=== PATIENT | male | born 1965 | race Caucasian/White ===

== ENCOUNTER 2022-04-05 19:11 | Inpatient (IN) | payer SELFPAY ==
[~2022-04-05] VITALS: Ht 172.7 cm; Wt 79.8 kg
[2022-04-05] MEDS ORDERED: DIPHENHYDRAMINE 50MG/ML VIAL IV ONE (22:45)
[2022-04-05] MEDS ORDERED: CEFTRIAXONE 2 G PREMIX 50 ML IV ONE (22:45)
[2022-04-05] MEDS ORDERED: CEFTRIAXONE 2 G in DEXTROSE 5% WATER 50 ML IV NR (23:00)
[2022-04-05 23:14] LABS: CHLORIDE 105 mEq/L (98-107)
[2022-04-05 23:26] LABS: BASOPHILS % 0.8 % (0.0-2.0); EOSINOPHILS % 8.8 % (0.0-5.0); HEMATOCRIT. 37.4 % (42.0-52.0); LYMPHOCYTES % 17.6 % (20.0-50.0); MEAN CORPUSCULAR HEMOGLOBIN 34.2 pg (28.0-32.0); MEAN CORPUSCULAR VOLUME 98.8 fL (80.0-94.0); MEAN PLATELET VOLUME 7.3 fl (7.4-10.4); MONOCYTES % 8.8 % (2.0-8.0); PLATELET 262 x1000/uL (130-400); RED BLOOD CELL COUNT 3.79 mill/uL (4.7-6.1); RED CELL DISTRIBUTION WIDTH 13.7 % (11.6-14.6)
[2022-04-06 06:00] VITALS: BP 138/87
[2022-04-06 08:00] VITALS: BP_SYST 136; BP_SYST 156; BP_DIAS 52
[2022-04-06 12:00] VITALS: BP 150/77
[2022-04-06] MEDS ORDERED: PERMETHRIN 5% CREAM 60GM TOP NR (15:00)
[2022-04-06 16:00] VITALS: BP 144/90
[2022-04-06 20:00] VITALS: BP 143/82
[2022-04-06] MEDS ORDERED: CEFTRIAXONE 1,000 MG in DEXTROSE 5% WATER 50 ML IV SCH (21:00)
[2022-04-06] MEDS ORDERED: HYDROCODONE/ACETAMINOPHEN 5/325MG TABLET PO PRN (22:00)
[2022-04-06] MEDS ORDERED: NALOXONE HCL 0.4MG/ML VIAL IV PRN (22:00)
[2022-04-06] MEDS ORDERED: ACETAMINOPHEN 650MG/20.3ML UDC PO PRN (22:00)
[2022-04-07] VITALS: BP 120/84
[2022-04-07 04:00] VITALS: BP 137/68
[2022-04-07 08:00] VITALS: BP 129/87
[2022-04-07] MEDS ORDERED: CEPH500C2 MT (09:20)
[2022-04-07 09:52] VITALS: BP 129/87
[2022-04-09 04:07] LABS: HIV SCREEN 4G Non Reactive (Non Reactive)
== END 2022-04-07 10:54 | disposition home or self-care (01) | DRG 383 ==
LOC: ER 19:30 → 6EST 04-06 01:41 → EDBEDREQ 04-06 02:01 → EDBEDREQTM 04-06 02:01 → ENRESERV 04-06 02:39
PROVIDERS: ADMIT Internal Medicine; ATTEND Internal Medicine
DX: L03.90 Cellulitis, unspecified (principal); D64.9 Anemia, unspecified; B86 Scabies; Z20.822 Contact with and (suspected) exposure to COVID-19; S80.822A Blister (nonthermal), left lower leg, initial encounter; S80.821A Blister (nonthermal), right lower leg, initial encounter; T14.8XXA Other injury of unspecified body region, initial encounter; X58.XXXA Exposure to other specified factors, initial encounter; Y93.89 Activity, other specified; Y92.89 Other specified places as the place of occurrence of the external cause; Y99.8 Other external cause status
CPT/HCPCS: 36415; 80053; 83605; 85025; 85651; 87389; 87426; 99285; C9803; J0696; J1200; J7060; A4315

== ENCOUNTER 2022-04-29 13:35 | Emergency (ER) | payer SELFPAY ==
[~2022-04-29] VITALS: Ht 177.8 cm; Wt 73.0 kg
[~2022-04-29 13:35] MED LIST: CEPH500C2 MT
[2022-04-29 13:38] VITALS: BP 149/79
[2022-04-29] MEDS ORDERED: SULFAMETHOXAZOLE/TRIMETHOPRIM 800/160MG TABLET PO ONE (17:15)
[2022-04-29] MEDS ORDERED: CEPHALEXIN 250MG CAPSULE PO ONE (17:15)
[2022-04-29] MEDS ORDERED: CEPH500C2 MT (17:30)
[2022-04-29] MEDS ORDERED: SULF1TAB48 MT (17:30)
== END 2022-04-29 17:57 | disposition home or self-care (01) ==
LOC: ER 13:35
DX: L03.116 Cellulitis of left lower limb (principal)
CPT/HCPCS: 73590; 99283

== ENCOUNTER 2022-05-11 20:00 | Emergency (ER) | payer SELFPAY ==
[~2022-05-11] VITALS: Ht 177.8 cm; Wt 84.0 kg
[~2022-05-11 20:00] MED LIST changes: +SULF1TAB48 MT
[2022-05-11 20:04] VITALS: BP 125/76
[2022-05-12] MEDS ORDERED: SULF1TAB48 MT (16:40)
== END 2022-05-11 21:37 | disposition home or self-care (01) ==
LOC: ER 20:00
DX: Z00.00 Encounter for general adult medical examination without abnormal findings (principal); G89.29 Other chronic pain
CPT/HCPCS: 99283

== ENCOUNTER 2022-05-12 14:45 | Emergency (ER) | payer MEDICAID ==
[~2022-05-12] VITALS: Ht 182.9 cm; Wt 81.0 kg
[2022-05-12 14:57] VITALS: BP 148/78
[2022-05-12] MEDS ORDERED: IBUPROFEN 400MG TABLET PO ONE (16:00)
[2022-05-12] MEDS ORDERED: ACETAMINOPHEN 325MG TABLET PO ONE (16:00)
[2022-05-12] MEDS ORDERED: SULF1TAB48 MT (16:40)
== END 2022-05-12 18:24 | disposition home or self-care (01) ==
LOC: ER 14:45
DX: G89.29 Other chronic pain (principal); M25.572 Pain in left ankle and joints of left foot
CPT/HCPCS: 99283

== ENCOUNTER 2022-06-15 20:01 | Inpatient (IN) | payer MEDICAID ==
[~2022-06-15] VITALS: Ht 182.9 cm; Wt 83.0 kg
[2022-06-15] MEDS ORDERED: SODIUM CHLORIDE 0.9% 1,000 ML IV ONE (20:45)
[2022-06-15] MEDS ORDERED: SULFAMETHOXAZOLE/TRIMETHOPRIM 800/160MG TABLET PO ONE (20:45)
[2022-06-15] MEDS ORDERED: CEPHALEXIN 250MG CAPSULE PO ONE (20:45)
[2022-06-15 22:02] LABS: BASOPHILS % 1.5 % (0.0-2.0); EOSINOPHILS % 4.2 % (0.0-5.0); HEMOGLOBIN. 14.9 g/dL (14.0-18.0); LYMPHOCYTES % 22.3 % (20.0-50.0); MEAN CORPUSCULAR HEMOGLOBIN 34.1 pg (28.0-32.0); MEAN CORPUSCULAR VOLUME 100.8 fL (80.0-94.0); MEAN PLATELET VOLUME 8.2 fl (7.4-10.4); MONOCYTES % 8.1 % (2.0-8.0); NEUTROPHILS % 63.9 % (40.0-76.0); PLATELET 159 x1000/uL (130-400); RED BLOOD CELL COUNT 4.36 mill/uL (4.7-6.1); RED CELL DISTRIBUTION WIDTH 15.2 % (11.6-14.6)
[2022-06-15 22:08] LABS: CHLORIDE 107 mEq/L (98-107)
[2022-06-15 22:22] LABS: ETHANOL BLOOD 330 mg/dL
[2022-06-15] MEDS ORDERED: SULFAMETHOXAZOLE/TRIMETHOPRIM 800/160MG TABLET PO NR (22:30)
[2022-06-15] MEDS ORDERED: CEPHALEXIN 250MG CAPSULE PO NR (22:30)
[2022-06-16] MEDS ORDERED: ZOLPIDEM TARTRATE 5MG TABLET PO PRN (01:00)
[2022-06-16] MEDS ORDERED: ONDANSETRON HCL 4MG/2ML INJ IV PRN (01:00)
[2022-06-16] MEDS ORDERED: GUAIFENESIN 200MG/10ML SUGAR FREE UDC PO PRN (01:00)
[2022-06-16] MEDS ORDERED: IPRATROPIUM/ALBUTEROL 0.5-3(2.5)MG/3ML NEB HHN PRN (01:00)
[2022-06-16] MEDS ORDERED: ACETAMINOPHEN 325MG TABLET PO PRN ×2 (01:00)
[2022-06-16] MEDS ORDERED: LORAZEPAM 0.5MG TABLET PO PRN (01:00)
[2022-06-16] MEDS ORDERED: DIPHENHYDRAMINE 50MG/ML VIAL IV PRN (01:00)
[2022-06-16] MEDS ORDERED: CLONIDINE 0.1MG TABLET PO PRN (01:00)
[2022-06-16] MEDS ORDERED: DOCUSATE SODIUM 100MG CAPSULE PO PRN (01:00)
[2022-06-16] MEDS ORDERED: ASPIRIN 325MG EC TABLET PO ONE (01:15)
[2022-06-16] MEDS ORDERED: VANCOMYCIN 1.25GM PMX (XELLIA) 250 ML IV NR (02:00)
[2022-06-16 02:10] LABS: T4 FREE 0.81 ng/dL (0.76-1.46)
[2022-06-16 02:15] LABS: FOLIC ACID (FOLATE) SERUM 6.7 ng/mL (>5.38)
[2022-06-16] MEDS ORDERED: MVI, ADULT NO.1 10 ML, FOLIC ACID 1 MG, THIAMINE HCL 100 MG in SODIUM CHLORIDE 0.9% 1,0... IV SCH ×8 (02:30→03:15)
[2022-06-16] MEDS ORDERED: PIPERACILLIN/TAZ 3.375G PREMIX 50 ML IV NR (03:00)
[2022-06-16 04:23] LABS: HEMATOCRIT 41.8 % (42.0-52.0); HEMOGLOBIN 13.9 g/dL (14.0-18.0); MEAN CORPUSCULAR HEMOGLOBIN 33.7 pg (28.0-32.0); MEAN CORPUSCULAR VOLUME 101.3 fL (80.0-94.0); PLATELET 138 x1000/uL (130-400); RED BLOOD CELL COUNT 4.12 mill/uL (4.7-6.1); RED CELL DISTRIBUTION WIDTH 15.1 % (11.6-14.6)
[2022-06-16 04:46] LABS: CHLORIDE 110 mEq/L (98-107)
[2022-06-16 04:52] LABS: PHOSPHORUS 3.6 mg/dL (2.5-4.9)
[2022-06-16 04:55] LABS: CREATINE KINASE MB FRACTION 2.9 ng/mL (0.5-3.6)
[2022-06-16] MEDS: ZINC SULFATE 220 MG ( 50 ) CAPSULE PO SCH (09:13)
[2022-06-16] MEDS: ASCORBIC ACID 500 MG TABLET PO SCH (09:13)
[2022-06-16] MEDS: ENOXAPARIN 40MG/0.4ML SYR SUBCUT SCH (09:56)
[2022-06-16] MEDS ORDERED: SODIUM CHLORIDE 45ML SPRAY NS PRN (12:00)
[2022-06-16] MEDS ORDERED: PIPERACILLIN/TAZOBACTAM 3.375G in DEXT 5% WATER 50ML IV SCH (14:00)
[2022-06-16 17:17] LABS: PHOSPHORUS 3.1 mg/dL (2.5-4.9)
[2022-06-16] MEDS: SODIUM CHLORIDE 0.9% 1,000 ML IV SCH (17:41)
[2022-06-16] MEDS: CHLORDIAZEPOXIDE 25MG CAPSULE PO SCH (18:00)
[2022-06-16] MEDS: VANCOMYCIN 1.25GM PMX (XELLIA) 250 ML IV SCH (18:46)
[2022-06-16 19:45] VITALS: BP 146/93
[2022-06-16 20:00] VITALS: BP 146/93
[2022-06-16] MEDS: PIPERACILLIN/TAZOBACTAM 3.375G in DEXT 5% WATER 50ML IV SCH (22:48)
[2022-06-17] VITALS: BP 125/74
[2022-06-17] MEDS: CHLORDIAZEPOXIDE 25MG CAPSULE PO SCH ×4 (00:14→18:25)
[2022-06-17] MEDS: SODIUM CHLORIDE 0.9% 1,000 ML IV SCH ×3 (03:13→23:50)
[2022-06-17 04:00] VITALS: BP 154/95
[2022-06-17] MEDS: VANCOMYCIN 1.25GM PMX (XELLIA) 250 ML IV SCH ×2 (05:13→18:22)
[2022-06-17] MEDS: PIPERACILLIN/TAZOBACTAM 3.375G in DEXT 5% WATER 50ML IV SCH ×3 (07:02→21:56)
[2022-06-17 07:39] LABS: BASOPHILS % 1.5 % (0.0-2.0); EOSINOPHILS % 4.4 % (0.0-5.0); HEMATOCRIT. 40.8 % (42.0-52.0); HEMOGLOBIN. 13.9 g/dL (14.0-18.0); LYMPHOCYTES % 19.8 % (20.0-50.0); MEAN CORPUSCULAR HEMOGLOBIN 34.1 pg (28.0-32.0); MEAN CORPUSCULAR VOLUME 99.9 fL (80.0-94.0); MEAN PLATELET VOLUME 9.3 fl (7.4-10.4); MONOCYTES % 11.2 % (2.0-8.0); NEUTROPHILS % 63.1 % (40.0-76.0); PLATELET 112 x1000/uL (130-400); RED BLOOD CELL COUNT 4.08 mill/uL (4.7-6.1); RED CELL DISTRIBUTION WIDTH 14.5 % (11.6-14.6)
[2022-06-17] MEDS: ZINC SULFATE 220 MG ( 50 ) CAPSULE PO SCH (07:44)
[2022-06-17] MEDS: ASCORBIC ACID 500 MG TABLET PO SCH (07:44)
[2022-06-17] MEDS: ENOXAPARIN 40MG/0.4ML SYR SUBCUT SCH (07:44)
[2022-06-17 08:00] VITALS: BP 150/99
[2022-06-17] MEDS: FOLIC ACID 1MG TABLET PO SCH (08:09)
[2022-06-17] MEDS: THIAMINE HCL 100MG TABLET PO SCH (08:09)
[2022-06-17 08:49] LABS: CHLORIDE 106 mEq/L (98-107)
[2022-06-17 08:58] LABS: PHOSPHORUS 3.2 mg/dL (2.5-4.9)
[2022-06-17 10:21] LABS: CLARITY URINE CLEAR (CLEAR); COLOR URINE DARK YELLOW (YELLOW); KETONES URINE NEGATIVE (NEGATIVE); LEUKOCYTE ESTERASE URINE NEGATIVE (NEGATIVE); NITRITE URINE NEGATIVE (NEGATIVE); OCCULT BLOOD URINE NEGATIVE (NEGATIVE); PH URINE 8.5 (4.5-8.0); PROTEIN URINE NEGATIVE (NEGATIVE)
[2022-06-17 10:39] LABS: *AMPHETAMINES SCREEN URINE NEGATIVE (NEGATIVE); *BARBITURATES SCREEN URINE NEGATIVE (NEGATIVE); *BENZODIAZEPINES SCREEN URINE NEGATIVE (NEGATIVE); *COCAINE SCREEN URINE NEGATIVE (NEGATIVE); CANNABINOID URINE SCREEN NEGATIVE (NEGATIVE); METHADONE URINE SCREEN NEGATIVE (NEGATIVE); OPIATES URINE SCREEN NEGATIVE (NEGATIVE); PHENCYCLIDINE URINE SCREEN NEGATIVE (NEGATIVE)
[2022-06-17 12:00] VITALS: BP 156/87
[2022-06-17] MEDS: ASPIRIN 81MG TABLET PO SCH (12:46)
[2022-06-17] MEDS: CYANOCOBALAMIN 1000MCG/ML VIAL IM SCH (12:47)
[2022-06-17 20:00] VITALS: BP 159/93
[2022-06-17] MEDS ORDERED: ATORVASTATIN CALCIUM 10MG TABLET PO SCH (21:00)
[2022-06-17] MEDS: FAMOTIDINE 20MG TABLET PO SCH (21:56)
[2022-06-18] VITALS: BP 156/86
[2022-06-18] MEDS: CHLORDIAZEPOXIDE 25MG CAPSULE PO SCH ×2 (02:48→09:38)
[2022-06-18 04:00] VITALS: BP 150/94
[2022-06-18] MEDS ORDERED: VANCOMYCIN 1.25GM PMX (XELLIA) 250 ML IV SCH (06:00)
[2022-06-18] MEDS: PIPERACILLIN/TAZOBACTAM 3.375G in DEXT 5% WATER 50ML IV SCH (06:15)
[2022-06-18 06:34] LABS: BASOPHILS % 1.3 % (0.0-2.0); EOSINOPHILS % 7.2 % (0.0-5.0); HEMATOCRIT. 39.8 % (42.0-52.0); HEMOGLOBIN. 13.4 g/dL (14.0-18.0); LYMPHOCYTES % 27.2 % (20.0-50.0); MEAN CORPUSCULAR HEMOGLOBIN 34.1 pg (28.0-32.0); MEAN CORPUSCULAR VOLUME 101.5 fL (80.0-94.0); MEAN PLATELET VOLUME 9.7 fl (7.4-10.4); MONOCYTES % 9.9 % (2.0-8.0); NEUTROPHILS % 54.4 % (40.0-76.0); PLATELET 126 x1000/uL (130-400); RED BLOOD CELL COUNT 3.92 mill/uL (4.7-6.1); RED CELL DISTRIBUTION WIDTH 14.4 % (11.6-14.6)
[2022-06-18 07:34] LABS: CHLORIDE 110 mEq/L (98-107)
[2022-06-18 07:41] LABS: PHOSPHORUS 3.4 mg/dL (2.5-4.9); VANCOMYCIN TROUGH 11.2 ug/mL (5.0-10.0)
[2022-06-18 08:00] VITALS: BP 154/88
[2022-06-18] MEDS: ASPIRIN 81MG TABLET PO SCH (08:19)
[2022-06-18] MEDS: CYANOCOBALAMIN 1000MCG/ML VIAL IM SCH (08:19)
[2022-06-18] MEDS: FOLIC ACID 1MG TABLET PO SCH (08:19)
[2022-06-18] MEDS: ASCORBIC ACID 500 MG TABLET PO SCH (08:20)
[2022-06-18] MEDS: ZINC SULFATE 220 MG ( 50 ) CAPSULE PO SCH (08:20)
[2022-06-18] MEDS: FAMOTIDINE 20MG TABLET PO SCH (08:20)
[2022-06-18] MEDS: THIAMINE HCL 100MG TABLET PO SCH (08:20)
[2022-06-18] MEDS: ENOXAPARIN 40MG/0.4ML SYR SUBCUT SCH (08:20)
[2022-06-18] MEDS: SODIUM CHLORIDE 0.9% 1,000 ML IV SCH (08:21)
[2022-06-18] MEDS ORDERED: ATOR10TA PO (10:11)
[2022-06-18] MEDS ORDERED: FOLI-43 PO (10:11)
[2022-06-18] MEDS ORDERED: ASPI-1160 PO (10:11)
[2022-06-18] MEDS ORDERED: ASCO500T20 PO (10:11)
[2022-06-18] MEDS ORDERED: ZINC220C2 PO (10:11)
[2022-06-18] MEDS ORDERED: THIA100T72 PO (10:11)
[2022-06-18 12:00] VITALS: BP 131/74
[2022-06-18] MEDS ORDERED: VANCOMYCIN 1G PREMIX 200 ML IV SCH (14:00)
[2022-06-18 15:50] VITALS: BP 135/71
[2022-06-18 16:00] VITALS: BP 135/71
[2022-06-18] MEDS ORDERED: CHLORDIAZEPOXIDE 25MG CAPSULE PO SCH (18:00)
[2022-06-19] MEDS ORDERED: CHLORDIAZEPOXIDE 25MG CAPSULE PO SCH (18:00)
== END 2022-06-18 17:30 | disposition home or self-care (01) | DRG 52 ==
LOC: ER 20:37 → MICUSO 06-16 00:01 → 3WST 06-16 19:26
PROVIDERS: ADMIT Internal Medicine; ATTEND Internal Medicine
DX: G92.9 Unspecified toxic encephalopathy (principal); E44.1 Mild protein-calorie malnutrition; R77.8 Other specified abnormalities of plasma proteins; D53.9 Nutritional anemia, unspecified; E78.5 Hyperlipidemia, unspecified; L97.329 Non-pressure chronic ulcer of left ankle with unspecified severity; R74.01 Elevation of levels of liver transaminase levels; F10.129 Alcohol abuse with intoxication, unspecified; F17.210 Nicotine dependence, cigarettes, uncomplicated; Y90.8 Blood alcohol level of 240 mg/100 ml or more; Z28.310 Unvaccinated for COVID-19; Z79.899 Other long term (current) drug therapy; Z68.24 Body mass index [BMI] 24.0-24.9, adult; L98.499 Non-pressure chronic ulcer of skin of other sites with unspecified severity
CPT/HCPCS: 36415; 71045; 73590; 76700; 80048; 80053; 80061; 80076; 80202; 80305; 80320; 81003; 82550; 82553; 82607; 82746; 83036; 83605; 83735; 83880; 84100; 84145; 84439; 84443; 84484; 85025; 85027; 87426; 93005; 93306; 93970; 97162; 99291; C9803; J1650; J2543; J3370; J3411; J3420; J3490; J7030; J7060; G0480

== ENCOUNTER 2022-06-21 18:54 | Emergency (ER) | payer MEDICAID ==
[~2022-06-21] VITALS: Ht 180.3 cm; Wt 80.0 kg
[~2022-06-21 18:54] MED LIST changes: +ASCO500T20 PO; +ASPI-1160 PO; +ATOR10TA PO; -CEPH500C2 MT; +FOLI-43 PO; -SULF1TAB48 MT; +THIA100T72 PO; +ZINC220C2 PO
[2022-06-21 18:57] VITALS: BP 122/65
== END 2022-06-21 21:53 | disposition home or self-care (01) ==
LOC: ER 19:12
DX: R53.1 Weakness (principal); F10.229 Alcohol dependence with intoxication, unspecified; Y90.9 Presence of alcohol in blood, level not specified; I25.2 Old myocardial infarction; Z59.02 Unsheltered homelessness
CPT/HCPCS: 99283